=== PATIENT | male | born 1945 | race Caucasian/White ===

== ENCOUNTER 2022-07-26 06:20 | Day surgery (SDC) | payer OTHER ==
[~2022-07-26] VITALS: Ht 157.5 cm; Wt 60.3 kg
[~2022-07-26 06:20] MED LIST: CLONAZEPAM1 MG PO; CRESTOR10 MG PO
== END 2022-07-26 15:10 | disposition home or self-care (01) ==
LOC: CIR.AMB 06:20
PROVIDERS: ATTEND Specialist
DX: K40.90 Unilateral inguinal hernia, without obstruction or gangrene, not specified as recurrent (principal); Z20.822 Contact with and (suspected) exposure to COVID-19; Z88.0 Allergy status to penicillin; E78.5 Hyperlipidemia, unspecified; Z87.891 Personal history of nicotine dependence